=== PATIENT | female | born 1995 | race Caucasian/White ===

== ENCOUNTER → 2019-01-18 | Outpatient (CLI) | payer SELFPAY ==
[2019-01-18 19:21] LABS: BASO % 0.3 % (0.0-1.0); EOS # 0.1 10^3/uL (0.0-0.50); EOS % 1.1 % (0.0-3.0); HEMATOCRIT 37.2 % (36.0-47.0); LYMPH # 3.7 10^3/uL (1.5-6.5); LYMPH % 31.7 % (24.0-44.0); MEAN CORPUSCULAR HEMOGLOBIN 29.4 pg (27.0-33.0); MEAN CORPUSCULAR HGB CONC 34.9 g/dl (32.0-36.5); MEAN CORPUSCULAR VOLUME 84.2 fl (80.0-96.0); MONO # 0.7 10^3/uL (0.0-0.8); MONO % 5.8 % (0.0-5.0); NEUTROPHILS # 7.1 10^3/uL (1.8-7.7); NEUTROPHILS % 60.7 % (36.0-66.0); PLATELET COUNT, AUTOMATED 269 10^3/uL (150-450); RED BLOOD COUNT 4.42 10^6/uL (4.00-5.40); WHITE BLOOD COUNT 11.6 10^3/uL (4.0-10.0)
[2019-01-18 21:28] LABS: CHLAMYDIA DNA AMPLIFICATION NEGATIVE (NEGATIVE); GC DNA AMPLIFICATION NEGATIVE (NEGATIVE)
[2019-01-19 09:10] LABS: HEPATITIS C VIRUS ABY INDEX 0.1 INDEX (<0.8); HIV 1&2 SCREEN CENTAUR NEGATIVE (NEGATIVE); RUBELLA IgG QUALITATIVE SUSCEPTIBLE (IMMUNE)
== END ==
LOC: M SMT 14:55
PROVIDERS: ATTEND Specialist
DX: Z34.02 Encounter for supervision of normal first pregnancy, second trimester (principal); Z3A.00 Weeks of gestation of pregnancy not specified

== ENCOUNTER 2019-05-18 16:05 | Inpatient (IN) | payer SELFPAY ==
[~2019-05-18] VITALS: Ht 162.6 cm; Wt 112.9 kg
[2019-05-18] VITALS (12 sets, daily range): BP systolic 89–143; BP diastolic 53–101
[2019-05-18] MEDS ORDERED: PREN29TA4 PO (17:29)
[2019-05-18] MEDS ORDERED: PENICILLIN G POTASSIUM IV 5 MU in D5W MINI-BAG PLUS 100 ML IV STA (17:34)
[2019-05-18 18:05] LABS: HEMATOCRIT 39.5 % (36.0-47.0); HEMOGLOBIN 13.4 g/dl (12.0-15.5); MEAN CORPUSCULAR HEMOGLOBIN 27.9 pg (27.0-33.0); MEAN CORPUSCULAR HGB CONC 33.9 g/dl (32.0-36.5); MEAN CORPUSCULAR VOLUME 82.3 fl (80.0-96.0); PLATELET COUNT, AUTOMATED 268 10^3/uL (150-450)
[2019-05-18 18:07] LABS: ALT/SGPT 25 U/L (12-78); BILIRUBIN,TOTAL 0.2 MG/DL (0.2-1.0); CREATININE FOR GFR 0.57 MG/DL (0.55-1.30); GLOMERULAR FILTRATION RATE > 60.0 (>60); LDH LACTATE DEHYDROGENASE 218 U/L (84-246); URIC ACID 3.6 MG/DL (2.6-6.0)
[2019-05-18] MEDS: miSOPROStol 50 MCG 1/2 TAB (S0191) PO SCH ×2 (18:07→22:09)
--- NOTE | 2019-05-18 18:14 | HPE ---
DATE OF ADMISSION: 05/18/2019 Dee Dee is a 23-year-old 1, para 0, at 39+ weeks gestation, She has an estimated date of confinement (EDC) of 05/21/2019 based on her last menstrual period and supported by second trimester ultrasound. She presents to labor and delivery for induction of labor due to gestational hypertension. She is of [facility] culture. She does report some scant bloody show today and an occasional mild contraction. She denies leakage of fluid and the fetus has been active. Her care was initiated at 22 weeks. She had a three office visits at [facility], noted to have elevated blood pressure at 29 weeks gestation. No pre-eclamptic labs with a spot urine were performed at that time. LABORATORIES: A negative, antibody screen negative, rubella nonimmune, VDRL nonreactive. Urine culture contaminated. Hepatitis B surface antigen negative, HIV negative. Hepatitis C antibody nonreactive. Gonorrhea and chlamydia negative. She did not have her group B Streptococcus (GBS) obtained. She did not have a repeat urine culture. No gestational diabetic screening performed as well. OBSTETRICAL HISTORY: Primigravida. PAST MEDICAL HISTORY: 1. Anxiety and depression. 2. Childhood pertussis and varicella. SURGERIES: None. FAMILY HISTORY: Hypertension. SOCIAL HISTORY: The patient is . Her and her mother at bedside and supportive. She is a nonsmoker. She denies alcohol and drug use. No history of any sexually transmitted infections and no history of abuse. ALLERGIES: No known drug allergies. CURRENT MEDICATIONS: - magnesium - calcium - acidophilus - multivitamin OBJECTIVE: Complete vital signs have not been obtained at this time. Blood pressure 143/101. Repeat blood pressure 114/55. heart rate is 130 with moderate variability, positive accelerations, negative decelerations. There is no pattern of regular contractions. Her abdomen is gravid, cephalic presentation. Estimated weight 8 pounds. STERILE VAGINAL EXAM: 1 cm dilated, 80% effaced, ballottable station, posterior and soft. No show with the exam. Cephalic presentation was confirmed with bedside ultrasound. ASSESSMENT: Intrauterine at 39+ weeks gestation. heart rate category one. Gestational hypertension. PLAN: Admit the patient to labor and delivery. Routine labs with the addition of pre-eclamptic profile. Out of bed ad miky. Regular diet at this time. Will start antibiotics for GBS unknown prophylaxis once the patient is in active labor. I plan misoprostol 50 mcg by mouth every 4 hours for cervical ripening. Likely will start Pitocin. The patient is uncertain how she will cope with her labor at this time. We did discuss a rupture of membranes (ROM) to augment her labor when she is in active labor. The patient and her family have had their questions answered. Risks, benefits and alternatives have been reviewed. She has been verbally consented for emergency surgery and blood products, if necessary. I do anticipate cervical ripening.
[2019-05-18 18:56] LABS: TOTAL PROTEIN,RANDOM URINE 16.2 MG/DL (0.0-12.0)
[2019-05-18] MEDS ORDERED: PENICILLIN G POTASSIUM IV 2.5 MU in IV 1 EA IV SCH (21:45)
[2019-05-19] VITALS (55 sets, daily range): BP systolic 97–169; BP diastolic 50–100
[2019-05-19] MEDS: miSOPROStol 50 MCG 1/2 TAB (S0191) PO SCH ×2 (02:14→06:15)
[2019-05-19] MEDS ORDERED: OXYTOCIN DRIP 30 UNITS in IV 1 EA IV SCH (09:45)
[2019-05-19] MEDS: LR 1,000 ML IV SCH ×2 (10:23→17:22)
[2019-05-19] MEDS ORDERED: PENICILLIN G POTASSIUM IV 5 MU in D5W MINI-BAG PLUS 100 ML IV STA (13:01)
[2019-05-19] MEDS ORDERED: PENICILLIN G POTASSIUM IV 2.5 MU in IV 1 EA IV SCH (13:15)
[2019-05-19] MEDS: PENICILLIN G POTASSIUM IV 2.5 MU in IV 1 EA IV SCH ×2 (16:58→21:00)
[2019-05-19] MEDS ORDERED: BUTORPHANOL 2 MG/ML INJ (J0595) IV ONE (18:00)
[2019-05-19] MEDS ORDERED: PROMETHAZINE INJ 25 MG/ML VIAL (J2550) IV ONE (18:00)
[2019-05-19] MEDS ORDERED: FENTANYL 2MCG/ML ROPIVACAINE 0.2% IN 0.9% NACL 100ML IVBAG As Ordered ONE (21:58)
[2019-05-19] MEDS ORDERED: EPIDURAL/PCA KEYS XX PRN (23:00)
[2019-05-19] MEDS ORDERED: NALOXONE INJ 0.4 MG/1 ML VIAL (J2310) IV PRN (23:00)
[2019-05-19] MEDS ORDERED: REFRIGERATOR IV KEYS XX PRN (23:00)
[2019-05-19] MEDS ORDERED: LACTATED RINGER'S 1000 ML IV PRN (23:00)
[2019-05-19] MEDS ORDERED: FENTANYL/ROPIVACAINE/NACL BAG 100 ML EPIDURAL SCH (23:00)
[2019-05-19] MEDS ORDERED: ONDANSETRON 4MG/2ML VIAL (J2405) IV PRN (23:00)
[2019-05-19] MEDS ORDERED: ePHEDrine SULFATE 25 MG/5 ML(5MG/ML) SYRINGE IV PRN (23:00)
[2019-05-19] MEDS ORDERED: diphenhydrAMINE INJ 50MG/ML VIAL (J1200) IV PRN (23:00)
[2019-05-19] MEDS ORDERED: EPIDURAL COMMENT XX SCH (23:00)
[2019-05-20] VITALS (21 sets, daily range): BP systolic 107–144; BP diastolic 58–112
[2019-05-20] MEDS: PENICILLIN G POTASSIUM IV 2.5 MU in IV 1 EA IV SCH (01:38)
[2019-05-20] MEDS ORDERED: ONDANSETRON 4MG/2ML VIAL (J2405) IV PRN (04:45)
[2019-05-20] MEDS ORDERED: DOCUSATE SODIUM 100 MG CAP PO PRN (04:45)
[2019-05-20] MEDS ORDERED: RHOGAM 300 MCG (1500 IU) INJ (J2790) IM SCH (04:45)
[2019-05-20] MEDS ORDERED: OXYTOCIN DRIP 30 UNITS in IV 1 EA IV ONE (04:45)
[2019-05-20] MEDS ORDERED: METHYLERGONOVINE MALEATE 0.2 MG TAB PO PRN (04:45)
[2019-05-20] MEDS ORDERED: ACETAMINOPHEN TAB 650MG DOSE (2X325MG) PO PRN (04:45)
[2019-05-20] MEDS ORDERED: DIBUCAINE 1% OINTMENT 30GM TOP PRN (04:45)
[2019-05-20] MEDS ORDERED: miSOPROStol 200 MCG TAB (S0191) PR ONE (04:45)
[2019-05-20] MEDS ORDERED: ACETAMINOPHEN 500 MG TAB PO PRN (04:45)
[2019-05-20] MEDS ORDERED: MEASLES,MUMPS,RUBELLA VACCINE INJ (MMR-II) (90707) SC SCH (04:45)
[2019-05-20] MEDS: PRENATAL VITAMINS CHEWABLE TABLET PO SCH ×2 (09:00→09:53)
--- NOTE | 2019-05-20 11:27 | DN ---
DATE OF DELIVERY: 05/20/2019 PREDELIVERY DIAGNOSIS: 39+ weeks gestation, chronic hypertension, labor induction. POSTDELIVERY DIAGNOSIS: Delivered. PROCEDURE: Spontaneous vaginal delivery. PARAMEDIC SUPERVISOR: Julius Ochoa MD ANESTHESIA: Epidural. ESTIMATED BLOOD LOSS: 300 mL. FINDINGS: 6 pound 13 ounce female infant, score 7 and 8. DELIVERY SUMMARY: After approximately a 2 hour and 20 minute second stage, the patient spontaneously delivered a 6 pound 13 ounce female infant, under epidural anesthesia. There was no nuchal cord. The shoulders delivered with ease. The infant was handed to the mother. The cord was doubly clamped and cut. The placenta delivered spontaneously and appeared to be intact. The patient received intravenous (IV) pitocin immediately after delivery of the placenta. Uterine atony was encountered. It was treated with fundal massage and 800 mcg of Cytotec per rectum. Good hemostasis was then noted. First-degree perineal laceration was repaired with #2-0 chromic in the usual fashion. Sponge and needle counts were correct.
[2019-05-21 07:00] VITALS: BP 111/78
[2019-05-21] MEDS: PRENATAL VITAMINS CHEWABLE TABLET PO SCH (07:48)
== END 2019-05-21 12:06 | disposition home or self-care (01) | DRG 560 ==
LOC: M LDI 16:05 → M OBS 05-20 09:00
PROVIDERS: ADMIT Advanced Practice Midwife; ATTEND Specialist
PROC: 3E033VJ Introduction of Other Hormone into Peripheral Vein, Percutaneous Approach (ICD-10-PCS; 2019-05-18)
PROC: 10E0XZZ Delivery of Products of Conception, External Approach (ICD-10-PCS; principal; 2019-05-20)
PROC: 0HQ9XZZ Repair Perineum Skin, External Approach (ICD-10-PCS; 2019-05-20)
DX: O13.4 Gestational [pregnancy-induced] hypertension without significant proteinuria, complicating childbirth (principal); O75.89 Other specified complications of labor and delivery; Z3A.39 39 weeks gestation of pregnancy; O70.0 First degree perineal laceration during delivery; Z37.0 Single live birth

== ENCOUNTER 2019-09-23 02:40 | Emergency (ER) | payer SELFPAY ==
[~2019-09-23] VITALS: Ht 157.5 cm; Wt 108.1 kg
[~2019-09-23 02:40] MED LIST: PREN29TA4 PO
[2019-09-23 02:41] VITALS: BP 120/78
[2019-09-23 04:50] LABS: INFLUENZA A AMPLIFICATION NEGATIVE (NEGATIVE); INFLUENZA B AMPLIFICATION POSITIVE (NEGATIVE)
[2019-09-23] MEDS ORDERED: OSEL75CA PO (04:55)
[2019-09-23] MEDS ORDERED: OSELTAMIVIR PHOSPHATE 75 MG CAP (TAMIFLU) PO ONE (05:00)
== END 2019-09-23 05:04 | disposition home or self-care (01) ==
LOC: M ED 02:40
DX: J10.1 Influenza due to other identified influenza virus with other respiratory manifestations (principal); Z88.6 Allergy status to analgesic agent; Z33.1 Pregnant state, incidental; Z79.899 Other long term (current) drug therapy

== ENCOUNTER 2020-03-19 09:30 | Inpatient (IN) | payer SELFPAY ==
[~2020-03-19] VITALS: Ht 162.6 cm; Wt 112.7 kg
[2020-03-19] VITALS (7 sets, daily range): BP systolic 100–135; BP diastolic 53–79
[~2020-03-19 09:30] MED LIST changes: +BICITRA 30ML SOLN UDC PO ONE; +OSEL75CA PO; +ceFAZolin SOD 2 GM in IV 1 EA IV ONE
[2020-03-19] MEDS ORDERED: LACTATED RINGER'S 1000 ML IV STA (09:46)
[2020-03-19] MEDS ORDERED: LR 1,000 ML IV SCH ×2 (09:46→12:15)
[2020-03-19] MEDS ORDERED: ceFAZolin 2 GM/D5W 50 ML IV BAG (J0690 PER 500MG) As Ordered ONE (10:08)
[2020-03-19] MEDS ORDERED: BICITRA 30ML SOLN UDC As Ordered ONE (10:08)
[2020-03-19] MEDS ORDERED: MORPHINE PRES-FREE INJ 10 MG/10 ML VIAL (J2274) As Ordered ONE (10:09)
[2020-03-19] MEDS ORDERED: OXYTOCIN INJ 10 UNITS/ML VIAL (J2590) As Ordered ONE (10:10)
--- NOTE | 2020-03-19 10:10 | IPNPDOC ---
Obstetrical Progress Note Date of Service Mar 19, 2020 Subjective Assessment in setting of potential emergency: to room for report of possible malpresentation with limbs beyond the cervix by sequencing machine operator attempting a home with [place] patient. Patient reports she ruptured at 0700 yesterday and has not had painful contractions. She does not know her LMP as she has not had once since . She last delivered in MAY 2019. Assessment Heart Rate (FHR): 140 Variability: Moderate Accelerations: Positive Decelerations: None Heart Rate Tracing: Category I Tocometer Contractions: Yes Sterile Vaginal Examination Dilation: 3 cm Effacement (%): 90% Station: -3 Cervical Consistency: Soft Cervical Position: Anterior Postion/Presentation: Breech presentation Assessment and Plan Status: Reassuring Additional Comments 24yo with unsure dates but reports term. To room for notification of potential malpresentation with limbs beyond the cervix. SVE 3/90/H, grossly ruptured (since 0700 per patient) without si/sx of infection. On exam hand can be felt at the level of the cervix but not beyond. The TAUS showed the fetus in breech presentation. Once tracing was established the baby was noted to be CAT I. Given lack of labor progression per sequencing machine operator and CAT I tracing c- section would be recommended urgently not emergently. Called Dr. Hazel to notify and signed out above information. SHANTELLE MAYFIELD DO Mar 19, 2020 10:10
[2020-03-19 10:24] LABS: HEMOGLOBIN 13.5 g/dl (12.0-15.5); MEAN CORPUSCULAR HEMOGLOBIN 28.8 pg (27.0-33.0); MEAN CORPUSCULAR HGB CONC 34.6 g/dl (32.0-36.5); MEAN CORPUSCULAR VOLUME 83.2 fl (80.0-96.0); PLATELET COUNT, AUTOMATED 265 10^3/uL (150-450); RED BLOOD COUNT 4.69 10^6/uL (4.00-5.40); WHITE BLOOD COUNT 11.3 10^3/uL (4.0-10.0)
[2020-03-19] MEDS ORDERED: NALBUPHINE HCL 10 MG/ML AMP (J2300) IV PRN (10:41)
[2020-03-19] MEDS ORDERED: NALOXONE INJ 0.4MG/1ML VIAL (J2310 PER 1MG) IV PRN ×2 (10:41)
[2020-03-19] MEDS ORDERED: diphenhydrAMINE 50MG/ML VIAL (J1200) IV PRN (10:41)
[2020-03-19] MEDS ORDERED: ONDANSETRON 4MG/2ML VIAL IV PRN ×3 (10:41→12:15)
[2020-03-19] MEDS ORDERED: METOCLOPRAMIDE INJ 10MG/2ML VIAL (J2765 PER 1) IV PRN (10:41)
[2020-03-19] MEDS ORDERED: ePHEDrine SULFATE 25 MG/5 ML(5MG/ML) SYRINGE As Ordered ONE (10:56)
[2020-03-19] MEDS ORDERED: PHENYLephrine HCL 500 MCG/5 ML (100MCG/ML) SYRINGE (J2370) As Ordered ONE (10:57)
[2020-03-19] MEDS ORDERED: ONDANSETRON 4MG/2ML VIAL As Ordered ONE ×2 (10:57→11:48)
[2020-03-19] MEDS ORDERED: ACETAMINOPHEN 1000MG 100ML IV BTL (OFIRMEV) (J0131 PER 10MG) As Ordered ONE (11:10)
[2020-03-19] MEDS ORDERED: OXYTOCIN DRIP 30 UNITS in IV 1 EA IV SCH (11:23)
[2020-03-19 11:28] LABS: CORD GAS ABE V -1.8; CORD GAS HCO3 V 24.3 MEQ/L; CORD GAS O2 SAT V 60.2 %; CORD GAS PCO2 V 46.3 mmHg; CORD GAS PH V 7.338 UNITS; CORD GAS PO2 V 25.3 mmHg; CORD GAS SBC V 22.2 MEQ/L; CORD GAS TCO2 V 25.7 MEQ/L
[2020-03-19] MEDS ORDERED: ACETAMINOPHEN 500 MG TAB PO PRN (11:30)
[2020-03-19] MEDS ORDERED: MOM 30ML SUSPENSION UDC PO PRN (11:30)
[2020-03-19] MEDS ORDERED: RHOGAM 300 MCG (1500 IU) INJ (J2790) IM SCH (11:30)
[2020-03-19] MEDS ORDERED: PERCOCET 5MG/325MG TAB PO PRN ×2 (11:30→12:15)
[2020-03-19] MEDS ORDERED: MEASLES,MUMPS,RUBELLA VACCINE INJ (MMR-II) (90707) SC SCH (11:30)
[2020-03-19 11:31] LABS: CORD GAS ABE A -4.2; CORD GAS HCO3 A 24.5 MEQ/L; CORD GAS O2 SAT A 18.9 %; CORD GAS PCO2 A 62.6 mmHg; CORD GAS PH A 7.211 UNITS; CORD GAS SBC A 19.4 MEQ/L; CORD GAS TCO2 A 26.5 MEQ/L
[2020-03-19] MEDS ORDERED: OXYTOCIN 30 UNITS IN 0.9% NaCl 500ML IV BAG (J2590) As Ordered ONE (11:39)
[2020-03-19] MEDS ORDERED: GNP250TA9 PO (11:46)
[2020-03-19] MEDS ORDERED: CALC500C16 PO (11:46)
[2020-03-19] MEDS ORDERED: EVEN10003 PO (11:47)
[2020-03-19] MEDS ORDERED: fentaNYL 100 MCG/2 ML INJECTION (J3010) IV PRN (12:15)
[2020-03-19] MEDS ORDERED: METOCLOPRAMIDE INJ 10MG/2ML VIAL (J2765 PER 1) As Ordered ONE (12:24)
[2020-03-19] MEDS: DOCUSATE SODIUM 100 MG CAP PO SCH (20:25)
[2020-03-19 20:56] LABS: BASO # 0.1 10^3/uL (0.0-0.2); BASO % 0.4 % (0.0-1.0); EOS # 0.1 10^3/uL (0.0-0.5); EOS % 0.7 % (0.0-3.0); LYMPH # 2.3 10^3/uL (1.5-5.0); LYMPH % 19.9 % (24.0-44.0); MONO # 0.7 10^3/uL (0.0-0.8); MONO % 5.7 % (0.0-5.0); NEUTROPHILS # 8.5 10^3/uL (1.5-8.5)
[2020-03-20 00:10] VITALS: BP 102/58
[2020-03-20 04:07] VITALS: BP 102/60
[2020-03-20] MEDS: PRENATAL VITAMINS CHEWABLE TABLET PO SCH (08:22)
[2020-03-20] MEDS: DOCUSATE SODIUM 100 MG CAP PO SCH ×2 (08:22→20:01)
[2020-03-20 10:00] VITALS: BP 107/51
[2020-03-20 12:00] LABS: HEPATITIS C VIRUS ABY INDEX 0.2 INDEX (<0.8)
[2020-03-20 14:00] VITALS: BP 107/57
[2020-03-20] MEDS: IBUPROFEN 800 MG TAB PO PRN (17:38)
[2020-03-20 18:00] VITALS: BP 121/77
[2020-03-20 20:00] VITALS: BP 105/57
[2020-03-21] VITALS: BP 111/62
--- NOTE | 2020-03-21 03:34 | OBDS ---
[facility] Obstetrical Discharge Sum. Obstetrical Discharge Summary Coater Operator Insulation Board/Provider: Mauricio Hazel DO Date: Mar 21, 2020 : 2 Term: 2 Pre-term: 0 Abortions: 0 Livin Sex: Female Anesthesia: Regional Anesthesia A/P, Post Course List any complications Admission diagnosis: Term with SROM and Breech; No care. Discharge diagnosis: Same Condition at Discharge: [Stable] Discharge Instructions: [Home/other] Activity: [As tolerated] Diet: [Regular] Medications: [May continue home med, tylenol as needed] Follow-up: [2 weeks] Other: Mauricio Hazel DO Mar 21, 2020 03:34
[2020-03-21 04:00] VITALS: BP 119/74
[2020-03-21 06:00] VITALS: BP 118/76
[2020-03-21] MEDS: DOCUSATE SODIUM 100 MG CAP PO SCH (08:32)
[2020-03-21] MEDS: PRENATAL VITAMINS CHEWABLE TABLET PO SCH (08:32)
[2020-03-21] MEDS: IBUPROFEN 800 MG TAB PO PRN (12:54)
--- NOTE | 2020-03-21 16:46 | HPE ---
DATE OF ADMISSION: 03/19/2020 Dee Dee is a 24-year-old female, 2, para 1-0-0-1, [place] young lady with no formal care who presented to labor and delivery after reporting being spontaneously ruptured last night around 9 o'clock. She labored at home and was seen by a graduate studies dean and was told she had a breech presentation. She presented to labor and delivery. Upon evaluation, she was found to be in active labor with a hand presenting in a breech presentation. After extensive consult, a decision was made to proceed with a section. She has no record for review. She did deliver has last at the hospital. MEDICAL HISTORY: She denies. PAST SURGICAL HISTORY: Denies. SOCIAL HISTORY: She is an [place] young lady. Denies any alcohol or drug use. REVIEW OF SYSTEMS: Unremarkable. MEDICATIONS: None. ALLERGIES: No known drug allergies. PHYSICAL EXAMINATION: Normal-appearing [place] lady, mildly obese in no acute distress. Abdomen soft, nontender, nondistended, gravid. Extremities: No clubbing, cyanosis, or edema. Vaginal exam: Grossly ruptured with a hand presenting at the level of the cervix, which would appear as jeanette breech presentation. No bleeding. No cord presenting. Her tracing reviewed. Category 1 tracing with contractions every 5-6 minutes. ASSESSMENT: 1. Gross rupture of membranes. Appears to be at term but no formal care. As per patient, had a due date of March 30. 2. Breech presentation. 3. No care. PLAN: Admit to labor and delivery. Routine labs sent. Patient and her counseled extensively. We will proceed with delivery via section. Risks and benefits of the surgery discussed with the patient as well as the alternative. RASHEED
--- NOTE | 2020-04-05 17:17 | RO ---
DATE OF OPERATION: 03/19/2020 INDICATIONS: Dee Dee is a 24-year-old female, 2, para 1,0,0,1, young lady with no care presented to Labor and Delivery in active labor with spontaneous rupture of membranes and breech presentation. After consulting the decision was made to proceed with primary section. PREOPERATIVE DIAGNOSES: * Breech presentation in active labor. * Spontaneous rupture of membranes. * No care. POSTOPERATIVE DIAGNOSES: * Breech presentation in active labor. * Spontaneous rupture of membranes. * No care. * Double footling breech with hand presentation. FINDINGS: Live female , Apgars 9 and 9, weight 6 pounds 7 ounces. Normal appearing tubes, ovaries, and placenta. PROCEDURE: Primary low transverse section, Pfannenstiel incision. ANESTHESIA: Spinal. SURGEON: Mauricio Hazel D.O. COMPLICATIONS: None. ESTIMATED BLOOD LOSS: 600 mL. DESCRIPTION OF PROCEDURE: After obtaining informed consent, the patient was taken to the Operating Room where spinal anesthetic was found to be adequate. She was then draped and prepped in the usual sterile fashion in the supine position. At this point a Pfannenstiel incision was made. This was carried down to the fascia. The fascia was incised in the midline fashion and carried through laterally. The superior aspect of the fascia was grasped with Chris clamps, tented off and dissected off the rectus muscle sharply. The inferior aspect was dissected off in similar fashion. Rectus muscle was in midline fashion. Peritoneum was identified. Peritoneal cavity was entered bluntly. Superior and inferior dissection of the peritoneum was then done with good visualization of the bladder. At this point a Mbius skin retractor was placed. A low transverse uterine incision was made. The was delivered in an atraumatic fashion, nose and mouth bulb suctioned, cord clamped and cut, and was handed over to the waiting warmer. Cord blood and cord gas was sent. Placenta removed manually. Uterus cleared of all clots and debris. Uterine incision was then repaired in two separate layers of #0 Vicryl suture. Attention was turned to the peritoneum which was closed in a running fashion using 2-0 Vicryl. The fascia was closed in two separate segments of #0 Vicryl sutures. All superficial bleeders were coagulated. The skin was reapproximated in a subcuticular fashion using 3-0 Vicryl on a Álvaro, Steri-Strips placed. Patient tolerated the procedure well. She was then transferred to the recovery room in stable condition. RASHEED
== END 2020-03-21 15:42 | disposition home or self-care (01) | DRG 540 ==
LOC: M LDO 09:30 → M LDI 09:46 → M OBS 13:13
PROVIDERS: ADMIT Obstetrics & Gynecology; ATTEND Obstetrics & Gynecology
PROC: 10D00Z1 Extraction of Products of Conception, Low, Open Approach (ICD-10-PCS; principal; 2020-03-19 11:25)
DX: O32.1XX0 Maternal care for breech presentation, not applicable or unspecified (principal); Z3A.00 Weeks of gestation of pregnancy not specified; Z37.0 Single live birth

== ENCOUNTER 2020-12-06 18:37 | Outpatient (CLI) | payer SELFPAY ==
[~2020-12-06] VITALS: Ht 188 cm; Wt 116.9 kg
[~2020-12-06 18:37] MED LIST changes: -BICITRA 30ML SOLN UDC PO ONE; +CALC500C16 PO; +EVEN10003 PO; +GNP250TA9 PO; -ceFAZolin SOD 2 GM in IV 1 EA IV ONE
[2020-12-06 19:36] VITALS: BP 127/67
--- NOTE | 2020-12-06 20:04 | IPNPDOC ---
Text Note Date of Service The patient was seen on 12/06/20. NOTE 25 yo Buddhist female at 24 weeks gestation by LMP presents with a single episode of bleeding early today. She has had no care. She has had one section. O: AVSS NAD Abd: NT, gravid, FHT cat. I SSE: cx appears closed, no bleeding, cx appears closed toco: none bedside ultrasound: 23 week IUP, transverse lie, placenta previa noted, normal MARCELO, good movement A/P 25 yo at 24 weeks with placenta previa explained what placenta previa means pelvic rest pt encouraged to seek medical care through a hospital for this Pt given phone number for our office VS,Jewels, I+O VS, Jewels, I+O Vital Signs Date Time Temp Pulse Resp B/P (MAP) Pulse Ox O2 Delivery O2 Flow Rate FiO2 12/06/20 19:36 97.7 82 127/67 (87) SANNA SANCHEZ MD December 06, 2020 20:04
== END 2020-12-06 20:05 | disposition home or self-care (01) ==
LOC: M LDO 18:37
PROVIDERS: ATTEND Specialist
DX: O44.32 Partial placenta previa with hemorrhage, second trimester (principal); Z3A.24 24 weeks gestation of pregnancy; O09.32 Supervision of pregnancy with insufficient antenatal care, second trimester; O34.211 Maternal care for low transverse scar from previous cesarean delivery; Z88.6 Allergy status to analgesic agent
CPT/HCPCS: 76815; G0378; G0463

== ENCOUNTER → 2021-03-21 | Outpatient (REF) | payer SELFPAY | LOC: M SFHCWAGY 12:56 | PROVIDERS: ATTEND Specialist | DX: Z34.83 Encounter for supervision of other normal pregnancy, third trimester (principal) ==

== ENCOUNTER → 2022-07-24 | Outpatient (CLI) | payer SELFPAY | LOC: M RAD 09:25 | DX: Z53.9 Procedure and treatment not carried out, unspecified reason (principal) ==